=== PATIENT | male | born 1950 | race Caucasian/White ===

== ENCOUNTER 2020-08-21 19:46 | Inpatient (IN) | payer OTHER ==
[2020-08-21] MEDS ORDERED: MAG HYDROX/AL HYDROX/SIMETH 30 ML UNIT-DOSE CUP PO PRN (21:16)
[2020-08-21] MEDS ORDERED: ONDANSETRON *ODT* 4 MG TABLET SL PRN (21:16)
[2020-08-21] MEDS ORDERED: ACETAMINOPHEN 325 MG TABLET (FP) PO PRN ×2 (21:16)
[2020-08-21] MEDS ORDERED: P-EPHED 60MG/TRIPROLIDI 2.5MG TABLET PO PRN (21:16)
[2020-08-21] MEDS ORDERED: MENTHOL/PHENOL 1 EACH UD MM PRN (21:16)
[2020-08-21] MEDS ORDERED: NALOXONE (NARCAN) HCL 4 MG/0.1 ML SPRAY NS PRN (21:16)
[2020-08-21] MEDS ORDERED: guaiFENesin 200 MG/10 ML 10 ML UNIT-DOSE CUPS PO PRN (21:16)
[2020-08-21] MEDS ORDERED: MAGNESIUM CITRATE 300 ML BOTTLE PO PRN (21:16)
[2020-08-21] MEDS ORDERED: NALOXONE HCL 0.4 MG/ML VIAL IM PRN (21:16)
[2020-08-21] MEDS ORDERED: MAGNESIUM HYDROX 2400MG/30ML ORAL SUSPENSION 30 ML CUP PO PRN (21:16)
[2020-08-21] MEDS ORDERED: DICYCLOMINE HCL 10 MG CAPSULE PO PRN (21:16)
[2020-08-21 21:32] VITALS: BMI 21.4
[2020-08-22] MEDS: THIAMINE HCL 100 MG TABLET (FP) PO SCH ×2 (00:13→22:11)
[2020-08-22] MEDS: MELATONIN 5 MG TABLETS PO SCH ×2 (00:13→22:11)
[2020-08-22] MEDS: METHOCARBAMOL 500 MG TABLET PO PRN (07:19)
[2020-08-22] MEDS ORDERED: METHADONE HCL 10 MG TABLET (FOR DETOX USE ONLY) PO ONE (09:52)
[2020-08-22 10:14] LABS: CALCIUM 9.6 mg/dL (8.5-10.1)
[2020-08-22 10:15] LABS: ALBUMIN 3.9 g/dl (3.4-5.0); BLOOD UREA NITROGEN 30.8 mg/dL (7-18)
[2020-08-22 10:16] LABS: CREATININE 1.4 mg/dL (0.55-1.3)
[2020-08-22 10:17] LABS: HEMATOCRIT 38.6 % (35.4-49); HEMOGLOBIN 12.8 GM/dL (11.7-16.9); MCH 29.8 pg (25.7-33.7); MCHC 33.3 g/dl (32.0-35.9); MEAN CELL VOLUME 89.7 fl (80-96); MEAN PLT VOLUME 8.2 fl (7.5-11.1); PLATELET COUNT 247 10^3/uL (134-434); RBC 4.31 M/mm3 (4.00-5.60); RDW 14.1 % (11.9-15.9); WHITE BLOOD COUNT 7.9 K/mm3 (4.0-10.0)
[2020-08-22 10:18] LABS: BILIRUBIN,TOTAL 0.5 mg/dL (0.2-1); TOT PROT 7.2 g/dl (6.4-8.2)
[2020-08-22] MEDS: PRENATAL VITAMINS W/ FOLIC ACID TABLET (FP) PO SCH (10:18)
[2020-08-22] MEDS: cloNIDine HCL 0.1 MG TABLET PO PRN (10:18)
[2020-08-22] MEDS: BISMUTH SUBSALICYLATE 524 MG/30 ML PO PRN ×2 (17:21→19:14)
[2020-08-23] MEDS ORDERED: METHADONE HCL 10 MG TABLET (FOR DETOX USE ONLY) ONE (09:15)
[2020-08-23] MEDS ORDERED: METHADONE HCL 5 MG TABLET (FOR DETOX USE ONLY) ONE (09:15)
[2020-08-23] MEDS ORDERED: METHADONE (DETOX) 20 MG, METHADONE (DETOX) 5 MG PO ONE (10:00)
[2020-08-23] MEDS: PRENATAL VITAMINS W/ FOLIC ACID TABLET (FP) PO SCH (10:20)
[2020-08-23 11:01] LABS: ALBUMIN 3.4 g/dl (3.4-5.0); BLOOD UREA NITROGEN 31.4 mg/dL (7-18); CALCIUM 9.5 mg/dL (8.5-10.1)
[2020-08-23 11:05] LABS: CREATININE 1.2 mg/dL (0.55-1.3)
[2020-08-23 11:06] LABS: BILIRUBIN,TOTAL 0.4 mg/dL (0.2-1); TOT PROT 6.6 g/dl (6.4-8.2)
[2020-08-23] MEDS: METHOCARBAMOL 500 MG TABLET PO PRN (14:10)
[2020-08-23] MEDS: IBUPROFEN 400 MG TABLET (FP) PO PRN (14:10)
[2020-08-23] MEDS: THIAMINE HCL 100 MG TABLET (FP) PO SCH (22:22)
[2020-08-23] MEDS: MELATONIN 5 MG TABLETS PO SCH (22:22)
[2020-08-23] MEDS: cloNIDine HCL 0.1 MG TABLET PO PRN (22:23)
[2020-08-24] MEDS ORDERED: METHADONE HCL 10 MG TABLET (FOR DETOX USE ONLY) PO ONE (10:00)
[2020-08-24] MEDS: PRENATAL VITAMINS W/ FOLIC ACID TABLET (FP) PO SCH (10:23)
[2020-08-24] MEDS: IBUPROFEN 400 MG TABLET (FP) PO PRN (10:29)
[2020-08-24] MEDS: cloNIDine HCL 0.1 MG TABLET PO PRN ×2 (10:29→22:18)
[2020-08-24] MEDS: METHOCARBAMOL 500 MG TABLET PO PRN (22:18)
[2020-08-24] MEDS: THIAMINE HCL 100 MG TABLET (FP) PO SCH (22:18)
[2020-08-24] MEDS: MELATONIN 5 MG TABLETS PO SCH (22:18)
[2020-08-25] MEDS ORDERED: METHADONE HCL 10 MG TABLET (FOR DETOX USE ONLY) ONE (09:32)
[2020-08-25] MEDS ORDERED: METHADONE HCL 5 MG TABLET (FOR DETOX USE ONLY) ONE (09:33)
[2020-08-25] MEDS: METHOCARBAMOL 500 MG TABLET PO PRN ×2 (09:48→21:57)
[2020-08-25] MEDS: hydrOXYzine PAMOATE 25 MG CAPSULE (FP) PO PRN (09:48)
[2020-08-25] MEDS: PRENATAL VITAMINS W/ FOLIC ACID TABLET (FP) PO SCH (09:48)
[2020-08-25] MEDS ORDERED: METHADONE (DETOX) 10 MG, METHADONE (DETOX) 5 MG PO ONE (10:00)
[2020-08-25] MEDS: THIAMINE HCL 100 MG TABLET (FP) PO SCH (21:57)
[2020-08-25] MEDS: MELATONIN 5 MG TABLETS PO SCH (21:57)
[2020-08-25] MEDS: IBUPROFEN 400 MG TABLET (FP) PO PRN (22:10)
[2020-08-26] MEDS ORDERED: METHADONE HCL 10 MG TABLET (FOR DETOX USE ONLY) PO ONE (10:00)
[2020-08-26 10:07] LABS: SARS-CoV-2 NAA Not Detected (Not Detected)
[2020-08-26] MEDS: PRENATAL VITAMINS W/ FOLIC ACID TABLET (FP) PO SCH (10:20)
[2020-08-26] MEDS: IBUPROFEN 400 MG TABLET (FP) PO PRN (10:23)
[2020-08-26] MEDS: LIDOCAINE 5% TOPICAL PATCH TP SCH (11:00)
[2020-08-26] MEDS ORDERED: LIDOCAINE PATCH REMOVAL MC SCH (22:00)
[2020-08-26] MEDS: MELATONIN 5 MG TABLETS PO SCH (22:10)
[2020-08-26] MEDS: hydrOXYzine PAMOATE 25 MG CAPSULE (FP) PO PRN (22:10)
[2020-08-26] MEDS: THIAMINE HCL 100 MG TABLET (FP) PO SCH (22:10)
[2020-08-26] MEDS: METHOCARBAMOL 500 MG TABLET PO PRN (22:11)
[2020-08-27] MEDS ORDERED: METHADONE HCL 5 MG TABLET (FOR DETOX USE ONLY) PO ONE (06:00)
[2020-08-27 09:02] VITALS: BP 128/84; PULSE 100; TEMP 97.3
[2020-08-27] MEDS: PRENATAL VITAMINS W/ FOLIC ACID TABLET (FP) PO SCH (10:23)
[2020-08-27] MEDS: hydrOXYzine PAMOATE 25 MG CAPSULE (FP) PO PRN (10:24)
[2020-08-27] MEDS: METHOCARBAMOL 500 MG TABLET PO PRN (10:24)
[2020-08-27] MEDS: LIDOCAINE 5% TOPICAL PATCH TP SCH (10:26)
== END 2020-08-27 12:35 | disposition other institution (70) | DRG 897 ==
LOC: YASAS 19:46 → Y3N 21:57 → UNDOADMIN 21:57
PROVIDERS: ADMIT Allergy & Immunology; ATTEND Allergy & Immunology
PROC: HZ2ZZZZ Detoxification Services for Substance Abuse Treatment (ICD-10-PCS; principal; 2020-08-21)
DX: F11.23 Opioid dependence with withdrawal (principal); F19.282 Other psychoactive substance dependence with psychoactive substance-induced sleep disorder; F19.24 Other psychoactive substance dependence with psychoactive substance-induced mood disorder; I10 Essential (primary) hypertension; E11.9 Type 2 diabetes mellitus without complications; Z79.84 Long term (current) use of oral hypoglycemic drugs; K21.9 Gastro-esophageal reflux disease without esophagitis
CPT/HCPCS: 36415; 80053; 82962; 85027; 86780; 93005; 93010; C9803; J0735; U0003; U0005

== ENCOUNTER 2020-08-27 12:40 | Inpatient (IN) | payer OTHER ==
[2020-08-27] MEDS ORDERED: MENTHOL/PHENOL 1 EACH UD MM PRN (13:25)
[2020-08-27] MEDS ORDERED: IBUPROFEN 400 MG TABLET (FP) PO PRN (13:25)
[2020-08-27] MEDS ORDERED: MAG HYDROX/AL HYDROX/SIMETH 30 ML UNIT-DOSE CUP PO PRN (13:25)
[2020-08-27] MEDS ORDERED: MAGNESIUM HYDROX 2400MG/30ML ORAL SUSPENSION 30 ML CUP PO PRN (13:25)
[2020-08-27] MEDS ORDERED: NICOTINE POLACRILEX 2 MG GUM BUC PRN (13:25)
[2020-08-27] MEDS ORDERED: LOPERAMIDE HCL 2 MG CAPSULE PO PRN (13:25)
[2020-08-27] MEDS ORDERED: MAGNESIUM CITRATE 300 ML BOTTLE PO PRN (13:25)
[2020-08-27] MEDS ORDERED: P-EPHED 60MG/TRIPROLIDI 2.5MG TABLET PO PRN (13:25)
[2020-08-27] MEDS: glipiZIDE 5 MG TABLET (FP) PO SCH (16:29)
[2020-08-27] MEDS: INSULIN SLIDING SCALE (NOVOLOG) 1 VIAL SQ SCH ×2 (16:30→21:15)
[2020-08-27] MEDS: CARVEDILOL 3.125 MG TABLET (FP) PO SCH (21:14)
[2020-08-27] MEDS: THIAMINE HCL 100 MG TABLET (FP) PO SCH (21:14)
[2020-08-27] MEDS: MELATONIN 5 MG TABLETS PO SCH (21:14)
[2020-08-27] MEDS: ATORVASTATIN CA 20 MG TABLET (FP) PO SCH (21:14)
[2020-08-28] MEDS: INSULIN SLIDING SCALE (NOVOLOG) 1 VIAL SQ SCH ×4 (06:08→21:50)
[2020-08-28] MEDS: glipiZIDE 5 MG TABLET (FP) PO SCH ×2 (06:08→16:56)
[2020-08-28] MEDS: NICOTINE 7 MG/24 HOURS TOPICAL PATCH TD SCH (09:46)
[2020-08-28] MEDS: amLODIPine BESYLATE 10 MG TABLET (FP) PO SCH (09:46)
[2020-08-28] MEDS: CARVEDILOL 3.125 MG TABLET (FP) PO SCH ×2 (09:46→21:49)
[2020-08-28] MEDS: PRENATAL VITAMINS W/ FOLIC ACID TABLET (FP) PO SCH (09:46)
[2020-08-28 14:07] LABS: HIV INTERPRETATION NEGATIVE (NEGATIVE)
[2020-08-28] MEDS ORDERED: INSULIN (NOVOLOG) ASPART 100 UNITS/ML 10ML VIAL ONE ×2 (16:56→21:48)
[2020-08-28] MEDS: THIAMINE HCL 100 MG TABLET (FP) PO SCH (21:49)
[2020-08-28] MEDS: ATORVASTATIN CA 20 MG TABLET (FP) PO SCH (21:49)
[2020-08-28] MEDS: MELATONIN 5 MG TABLETS PO SCH (21:49)
[2020-08-29] MEDS: glipiZIDE 5 MG TABLET (FP) PO SCH ×2 (06:43→16:32)
[2020-08-29] MEDS: INSULIN SLIDING SCALE (NOVOLOG) 1 VIAL SQ SCH ×4 (06:46→21:09)
[2020-08-29] MEDS: amLODIPine BESYLATE 10 MG TABLET (FP) PO SCH (10:16)
[2020-08-29] MEDS: CARVEDILOL 3.125 MG TABLET (FP) PO SCH ×2 (10:16→21:08)
[2020-08-29] MEDS: PRENATAL VITAMINS W/ FOLIC ACID TABLET (FP) PO SCH (10:16)
[2020-08-29] MEDS: guaiFENesin 200 MG/10 ML 10 ML UNIT-DOSE CUPS PO PRN (10:17)
[2020-08-29] MEDS: NICOTINE 7 MG/24 HOURS TOPICAL PATCH TD SCH (10:17)
[2020-08-29] MEDS ORDERED: INSULIN (NOVOLOG) ASPART 100 UNITS/ML 10ML VIAL ONE ×3 (11:42→21:08)
[2020-08-29] MEDS: THIAMINE HCL 100 MG TABLET (FP) PO SCH (21:09)
[2020-08-29] MEDS: MELATONIN 5 MG TABLETS PO SCH (21:09)
[2020-08-29] MEDS: ATORVASTATIN CA 20 MG TABLET (FP) PO SCH (21:09)
[2020-08-30] MEDS: glipiZIDE 5 MG TABLET (FP) PO SCH ×2 (06:03→17:14)
[2020-08-30] MEDS: INSULIN SLIDING SCALE (NOVOLOG) 1 VIAL SQ SCH ×4 (06:03→21:52)
[2020-08-30] MEDS: NICOTINE 7 MG/24 HOURS TOPICAL PATCH TD SCH (09:32)
[2020-08-30] MEDS: PRENATAL VITAMINS W/ FOLIC ACID TABLET (FP) PO SCH (09:32)
[2020-08-30] MEDS: CARVEDILOL 3.125 MG TABLET (FP) PO SCH ×2 (09:33→21:52)
[2020-08-30] MEDS: amLODIPine BESYLATE 10 MG TABLET (FP) PO SCH (09:33)
[2020-08-30] MEDS ORDERED: INSULIN (NOVOLOG) ASPART 100 UNITS/ML 10ML VIAL ONE ×2 (11:21→16:55)
[2020-08-30] MEDS: MELATONIN 5 MG TABLETS PO SCH (21:52)
[2020-08-30] MEDS: THIAMINE HCL 100 MG TABLET (FP) PO SCH (21:52)
[2020-08-30] MEDS: ATORVASTATIN CA 20 MG TABLET (FP) PO SCH (21:52)
[2020-08-30] MEDS: guaiFENesin 200 MG/10 ML 10 ML UNIT-DOSE CUPS PO PRN (21:53)
[2020-08-31] MEDS: glipiZIDE 5 MG TABLET (FP) PO SCH ×2 (06:15→17:04)
[2020-08-31] MEDS: INSULIN SLIDING SCALE (NOVOLOG) 1 VIAL SQ SCH ×4 (06:16→22:04)
[2020-08-31] MEDS: amLODIPine BESYLATE 10 MG TABLET (FP) PO SCH (09:54)
[2020-08-31] MEDS: NICOTINE 7 MG/24 HOURS TOPICAL PATCH TD SCH (09:54)
[2020-08-31] MEDS: PRENATAL VITAMINS W/ FOLIC ACID TABLET (FP) PO SCH (09:54)
[2020-08-31] MEDS: CARVEDILOL 3.125 MG TABLET (FP) PO SCH ×2 (09:54→22:03)
[2020-08-31] MEDS ORDERED: INSULIN (NOVOLOG) ASPART 100 UNITS/ML 10ML VIAL ONE (17:08)
[2020-08-31] MEDS: hydrOXYzine PAMOATE 25 MG CAPSULE (FP) PO PRN (22:02)
[2020-08-31] MEDS: THIAMINE HCL 100 MG TABLET (FP) PO SCH (22:02)
[2020-08-31] MEDS: MELATONIN 5 MG TABLETS PO SCH (22:02)
[2020-08-31] MEDS: ATORVASTATIN CA 20 MG TABLET (FP) PO SCH (22:03)
[2020-08-31] MEDS: ACETAMINOPHEN 325 MG TABLET (FP) PO PRN (22:04)
[2020-08-31] MEDS: guaiFENesin 200 MG/10 ML 10 ML UNIT-DOSE CUPS PO PRN (22:04)
[2020-09-01] MEDS: INSULIN SLIDING SCALE (NOVOLOG) 1 VIAL SQ SCH ×4 (06:08→21:57)
[2020-09-01] MEDS: glipiZIDE 5 MG TABLET (FP) PO SCH ×2 (06:08→16:52)
[2020-09-01] MEDS: CARVEDILOL 3.125 MG TABLET (FP) PO SCH ×2 (09:37→21:10)
[2020-09-01] MEDS: amLODIPine BESYLATE 10 MG TABLET (FP) PO SCH (09:38)
[2020-09-01] MEDS: NICOTINE 7 MG/24 HOURS TOPICAL PATCH TD SCH (09:38)
[2020-09-01] MEDS: PRENATAL VITAMINS W/ FOLIC ACID TABLET (FP) PO SCH (09:38)
[2020-09-01] MEDS: THIAMINE HCL 100 MG TABLET (FP) PO SCH (21:09)
[2020-09-01] MEDS: MELATONIN 5 MG TABLETS PO SCH (21:09)
[2020-09-01] MEDS: ACETAMINOPHEN 325 MG TABLET (FP) PO PRN (21:10)
[2020-09-01] MEDS: ATORVASTATIN CA 20 MG TABLET (FP) PO SCH (21:10)
[2020-09-02] MEDS: glipiZIDE 5 MG TABLET (FP) PO SCH ×2 (06:11→16:47)
[2020-09-02] MEDS: INSULIN SLIDING SCALE (NOVOLOG) 1 VIAL SQ SCH ×4 (06:11→21:08)
[2020-09-02] MEDS: amLODIPine BESYLATE 10 MG TABLET (FP) PO SCH (09:45)
[2020-09-02] MEDS: CARVEDILOL 3.125 MG TABLET (FP) PO SCH ×2 (09:45→21:05)
[2020-09-02] MEDS: PRENATAL VITAMINS W/ FOLIC ACID TABLET (FP) PO SCH (09:45)
[2020-09-02] MEDS: NICOTINE 7 MG/24 HOURS TOPICAL PATCH TD SCH (09:46)
[2020-09-02] MEDS ORDERED: INSULIN (NOVOLOG) ASPART 100 UNITS/ML 10ML VIAL ONE (16:47)
[2020-09-02] MEDS: THIAMINE HCL 100 MG TABLET (FP) PO SCH (21:05)
[2020-09-02] MEDS: MELATONIN 5 MG TABLETS PO SCH (21:05)
[2020-09-02] MEDS: ATORVASTATIN CA 20 MG TABLET (FP) PO SCH (21:05)
[2020-09-03] MEDS: INSULIN SLIDING SCALE (NOVOLOG) 1 VIAL SQ SCH ×4 (06:02→21:56)
[2020-09-03] MEDS: glipiZIDE 5 MG TABLET (FP) PO SCH ×2 (06:02→17:04)
[2020-09-03] MEDS: CARVEDILOL 3.125 MG TABLET (FP) PO SCH ×2 (09:36→21:53)
[2020-09-03] MEDS: PRENATAL VITAMINS W/ FOLIC ACID TABLET (FP) PO SCH (09:36)
[2020-09-03] MEDS: NICOTINE 7 MG/24 HOURS TOPICAL PATCH TD SCH (09:37)
[2020-09-03] MEDS: amLODIPine BESYLATE 10 MG TABLET (FP) PO SCH (09:37)
[2020-09-03] MEDS: ATORVASTATIN CA 20 MG TABLET (FP) PO SCH (21:53)
[2020-09-03] MEDS: MELATONIN 5 MG TABLETS PO SCH (21:53)
[2020-09-03] MEDS: DOCUSATE SODIUM 100 MG CAPSULE (FP) PO SCH (21:55)
[2020-09-03] MEDS: THIAMINE HCL 100 MG TABLET (FP) PO SCH (21:58)
[2020-09-03] MEDS ORDERED: SUVOREXANT 10 MG TABLET PO PRN (22:00)
[2020-09-04] MEDS: glipiZIDE 5 MG TABLET (FP) PO SCH ×2 (07:09→16:31)
[2020-09-04] MEDS: INSULIN SLIDING SCALE (NOVOLOG) 1 VIAL SQ SCH ×4 (07:11→21:02)
[2020-09-04] MEDS: amLODIPine BESYLATE 10 MG TABLET (FP) PO SCH (09:34)
[2020-09-04] MEDS: CARVEDILOL 3.125 MG TABLET (FP) PO SCH ×2 (09:34→21:01)
[2020-09-04] MEDS: NICOTINE 7 MG/24 HOURS TOPICAL PATCH TD SCH (09:34)
[2020-09-04] MEDS: PRENATAL VITAMINS W/ FOLIC ACID TABLET (FP) PO SCH (09:34)
[2020-09-04] MEDS ORDERED: INSULIN (NOVOLOG) ASPART 100 UNITS/ML 10ML VIAL ONE ×2 (16:31→21:01)
[2020-09-04] MEDS: DOCUSATE SODIUM 100 MG CAPSULE (FP) PO SCH (21:01)
[2020-09-04] MEDS: THIAMINE HCL 100 MG TABLET (FP) PO SCH (21:01)
[2020-09-04] MEDS: ATORVASTATIN CA 20 MG TABLET (FP) PO SCH (21:01)
[2020-09-04] MEDS: MELATONIN 5 MG TABLETS PO SCH (21:01)
[2020-09-04] MEDS: hydrOXYzine PAMOATE 25 MG CAPSULE (FP) PO PRN (21:03)
[2020-09-05] MEDS: INSULIN SLIDING SCALE (NOVOLOG) 1 VIAL SQ SCH ×4 (06:15→21:50)
[2020-09-05] MEDS: glipiZIDE 5 MG TABLET (FP) PO SCH ×2 (06:15→16:30)
[2020-09-05] MEDS: NICOTINE 7 MG/24 HOURS TOPICAL PATCH TD SCH (09:36)
[2020-09-05] MEDS: CARVEDILOL 3.125 MG TABLET (FP) PO SCH ×2 (09:36→21:44)
[2020-09-05] MEDS: amLODIPine BESYLATE 10 MG TABLET (FP) PO SCH (09:36)
[2020-09-05] MEDS: PRENATAL VITAMINS W/ FOLIC ACID TABLET (FP) PO SCH (09:36)
[2020-09-05] MEDS: MELATONIN 5 MG TABLETS PO SCH (21:44)
[2020-09-05] MEDS: ATORVASTATIN CA 20 MG TABLET (FP) PO SCH (21:44)
[2020-09-05] MEDS: DOCUSATE SODIUM 100 MG CAPSULE (FP) PO SCH (21:44)
[2020-09-05] MEDS: THIAMINE HCL 100 MG TABLET (FP) PO SCH (21:45)
[2020-09-05] MEDS: MIRTAZAPINE 15 MG TABLET (FP) PO SCH (21:46)
[2020-09-05] MEDS: hydrOXYzine PAMOATE 25 MG CAPSULE (FP) PO PRN (21:46)
[2020-09-05] MEDS ORDERED: INSULIN (NOVOLOG) ASPART 100 UNITS/ML 10ML VIAL ONE (21:49)
[2020-09-06] MEDS: glipiZIDE 5 MG TABLET (FP) PO SCH ×2 (06:25→17:01)
[2020-09-06] MEDS: INSULIN SLIDING SCALE (NOVOLOG) 1 VIAL SQ SCH ×4 (06:27→21:07)
[2020-09-06] MEDS: PRENATAL VITAMINS W/ FOLIC ACID TABLET (FP) PO SCH (09:37)
[2020-09-06] MEDS: amLODIPine BESYLATE 10 MG TABLET (FP) PO SCH (09:37)
[2020-09-06] MEDS: CARVEDILOL 3.125 MG TABLET (FP) PO SCH ×2 (09:37→21:04)
[2020-09-06] MEDS: NICOTINE 7 MG/24 HOURS TOPICAL PATCH TD SCH (09:37)
[2020-09-06] MEDS: guaiFENesin 200 MG/10 ML 10 ML UNIT-DOSE CUPS PO PRN (17:02)
[2020-09-06] MEDS: MIRTAZAPINE 15 MG TABLET (FP) PO SCH (21:04)
[2020-09-06] MEDS: ATORVASTATIN CA 20 MG TABLET (FP) PO SCH (21:05)
[2020-09-06] MEDS: DOCUSATE SODIUM 100 MG CAPSULE (FP) PO SCH (21:05)
[2020-09-06] MEDS ORDERED: INSULIN (NOVOLOG) ASPART 100 UNITS/ML 10ML VIAL ONE (21:06)
[2020-09-06] MEDS ORDERED: SUVOREXANT 10 MG TABLET PO PRN (22:00)
[2020-09-06] MEDS: SUVOREXANT 15 MG TABLET PO PRN (23:02)
[2020-09-06] MEDS: THIAMINE HCL 100 MG TABLET (FP) PO SCH (23:03)
[2020-09-07] MEDS: glipiZIDE 5 MG TABLET (FP) PO SCH ×2 (06:09→16:35)
[2020-09-07] MEDS: INSULIN SLIDING SCALE (NOVOLOG) 1 VIAL SQ SCH ×4 (06:11→21:47)
[2020-09-07] MEDS: CARVEDILOL 3.125 MG TABLET (FP) PO SCH ×2 (09:33→21:46)
[2020-09-07] MEDS: PRENATAL VITAMINS W/ FOLIC ACID TABLET (FP) PO SCH (09:33)
[2020-09-07] MEDS: amLODIPine BESYLATE 10 MG TABLET (FP) PO SCH (09:33)
[2020-09-07] MEDS: NICOTINE 7 MG/24 HOURS TOPICAL PATCH TD SCH (09:34)
[2020-09-07] MEDS: SUVOREXANT 15 MG TABLET PO PRN (21:45)
[2020-09-07] MEDS: ATORVASTATIN CA 20 MG TABLET (FP) PO SCH (21:46)
[2020-09-07] MEDS: DOCUSATE SODIUM 100 MG CAPSULE (FP) PO SCH (21:46)
[2020-09-07] MEDS: THIAMINE HCL 100 MG TABLET (FP) PO SCH (21:46)
[2020-09-07] MEDS: MIRTAZAPINE 15 MG TABLET (FP) PO SCH (21:47)
[2020-09-08] MEDS: glipiZIDE 5 MG TABLET (FP) PO SCH ×2 (06:10→16:32)
[2020-09-08] MEDS: INSULIN SLIDING SCALE (NOVOLOG) 1 VIAL SQ SCH ×4 (06:12→21:03)
[2020-09-08] MEDS: amLODIPine BESYLATE 10 MG TABLET (FP) PO SCH (09:50)
[2020-09-08] MEDS: PRENATAL VITAMINS W/ FOLIC ACID TABLET (FP) PO SCH (09:50)
[2020-09-08] MEDS: NICOTINE 7 MG/24 HOURS TOPICAL PATCH TD SCH (09:50)
[2020-09-08] MEDS: CARVEDILOL 3.125 MG TABLET (FP) PO SCH ×2 (09:50→21:02)
[2020-09-08] MEDS: hydrOXYzine PAMOATE 25 MG CAPSULE (FP) PO PRN (09:50)
[2020-09-08] MEDS ORDERED: INSULIN (NOVOLOG) ASPART 100 UNITS/ML 10ML VIAL ONE ×2 (12:11→20:57)
[2020-09-08] MEDS: ATORVASTATIN CA 20 MG TABLET (FP) PO SCH (21:02)
[2020-09-08] MEDS: THIAMINE HCL 100 MG TABLET (FP) PO SCH (21:02)
[2020-09-08] MEDS: DOCUSATE SODIUM 100 MG CAPSULE (FP) PO SCH (21:02)
[2020-09-08] MEDS: MIRTAZAPINE 15 MG TABLET (FP) PO SCH (21:02)
[2020-09-08] MEDS: SUVOREXANT 15 MG TABLET PO PRN (21:03)
[2020-09-09] MEDS: hydrOXYzine PAMOATE 25 MG CAPSULE (FP) PO PRN (01:07)
[2020-09-09] MEDS: glipiZIDE 5 MG TABLET (FP) PO SCH (06:23)
[2020-09-09] MEDS: INSULIN SLIDING SCALE (NOVOLOG) 1 VIAL SQ SCH (06:23)
[2020-09-09 06:53] VITALS: TEMP 97.7
[2020-09-09] MEDS: CARVEDILOL 3.125 MG TABLET (FP) PO SCH (09:34)
[2020-09-09] MEDS: PRENATAL VITAMINS W/ FOLIC ACID TABLET (FP) PO SCH (09:34)
[2020-09-09] MEDS: amLODIPine BESYLATE 10 MG TABLET (FP) PO SCH (09:34)
[2020-09-09] MEDS: NICOTINE 7 MG/24 HOURS TOPICAL PATCH TD SCH (09:35)
[2020-09-09 10:10] VITALS: BP 130/88; PULSE 101
== END 2020-09-09 10:45 | disposition home or self-care (01) | DRG 895 ==
LOC: YASAS 12:40 → Y3W 12:41
PROVIDERS: ADMIT Allergy & Immunology; ATTEND Allergy & Immunology
PROC: HZ42ZZZ Group Counseling for Substance Abuse Treatment, Cognitive-Behavioral (ICD-10-PCS; principal; 2020-08-27)
DX: F11.20 Opioid dependence, uncomplicated (principal); F19.282 Other psychoactive substance dependence with psychoactive substance-induced sleep disorder; F19.24 Other psychoactive substance dependence with psychoactive substance-induced mood disorder; I10 Essential (primary) hypertension; E11.9 Type 2 diabetes mellitus without complications; E78.5 Hyperlipidemia, unspecified; B18.2 Chronic viral hepatitis C; K21.9 Gastro-esophageal reflux disease without esophagitis; Z62.810 Personal history of physical and sexual abuse in childhood; Z79.84 Long term (current) use of oral hypoglycemic drugs; Z79.4 Long term (current) use of insulin
CPT/HCPCS: 36415; 71046-TC-FY; 82962; 87389

== ENCOUNTER 2020-12-04 13:41 | Inpatient (IN) | payer OTHER ==
[2020-12-04 15:26] VITALS: BMI 23.8
[2020-12-04] MEDS ORDERED: ACETAMINOPHEN 325 MG TABLET (FP) PO PRN ×2 (15:47)
[2020-12-04] MEDS ORDERED: ONDANSETRON *ODT* 4 MG TABLET SL PRN (15:47)
[2020-12-04] MEDS ORDERED: MENTHOL/PHENOL 1 EACH UD MM PRN (15:47)
[2020-12-04] MEDS ORDERED: MAG HYDROX/AL HYDROX/SIMETH 30 ML UNIT-DOSE CUP PO PRN (15:47)
[2020-12-04] MEDS ORDERED: MAGNESIUM CITRATE 300 ML BOTTLE PO PRN (15:47)
[2020-12-04] MEDS ORDERED: METHOCARBAMOL 500 MG TABLET PO PRN (15:47)
[2020-12-04] MEDS ORDERED: MAGNESIUM HYDROX 2400MG/30ML ORAL SUSPENSION 30 ML CUP PO PRN (15:47)
[2020-12-04] MEDS ORDERED: methaDONE HCL 10 MG TABLET (FOR DETOX USE ONLY) PO ONE (15:47)
[2020-12-04] MEDS ORDERED: BISMUTH SUBSALICYLATE 524 MG/30 ML PO PRN (15:47)
[2020-12-04] MEDS ORDERED: cloNIDine HCL 0.1 MG TABLET PO PRN (15:47)
[2020-12-04] MEDS ORDERED: IBUPROFEN 400 MG TABLET (FP) PO PRN (15:47)
[2020-12-04] MEDS ORDERED: clonazePAM 0.5 MG ODT TABLETS SL PRN (15:47)
[2020-12-04] MEDS: hydrOXYzine PAMOATE 25 MG CAPSULE (FP) PO SCH ×2 (19:20→22:41)
[2020-12-04] MEDS: THIAMINE HCL 100 MG TABLET (FP) PO SCH (22:41)
[2020-12-04] MEDS: MELATONIN 5 MG TABLETS PO SCH (22:41)
[2020-12-05] MEDS: hydrOXYzine PAMOATE 25 MG CAPSULE (FP) PO SCH ×2 (05:37→10:17)
[2020-12-05] MEDS ORDERED: methaDONE HCL 10 MG TABLET (FOR DETOX USE ONLY) ONE (09:31)
[2020-12-05 09:58] LABS: HEMATOCRIT 36.7 % (35.4-49); HEMOGLOBIN 12.5 GM/dL (11.7-16.9); MCH 29.5 pg (25.7-33.7); MCHC 33.9 g/dl (32.0-35.9); MEAN CELL VOLUME 87.1 fl (80-96); MEAN PLT VOLUME 8.1 fl (7.5-11.1); PLATELET COUNT 140 10^3/uL (134-434); RBC 4.22 M/mm3 (4.00-5.60); RDW 14.3 % (11.9-15.9); WHITE BLOOD COUNT 4.8 K/mm3 (4.0-10.0)
[2020-12-05 10:13] LABS: ALBUMIN 3.6 g/dl (3.4-5.0); BLOOD UREA NITROGEN 21.3 mg/dL (7-18); CALCIUM 9.3 mg/dL (8.5-10.1)
[2020-12-05 10:16] LABS: CREATININE 1.1 mg/dL (0.55-1.3)
[2020-12-05 10:17] LABS: BILIRUBIN,TOTAL 0.8 mg/dL (0.2-1); TOT PROT 6.8 g/dl (6.4-8.2)
[2020-12-05] MEDS: PRENATAL VITAMINS W/ FOLIC ACID TABLET (FP) PO SCH (10:17)
[2020-12-05] MEDS ORDERED: hydrOXYzine PAMOATE 25 MG CAPSULE (FP) PO PRN (11:26)
[2020-12-05] MEDS: glipiZIDE 5 MG TABLET (FP) PO SCH ×2 (12:59→17:55)
[2020-12-05] MEDS: CARVEDILOL 3.125 MG TABLET (FP) PO SCH ×2 (12:59→22:33)
[2020-12-05] MEDS: ATORVASTATIN CA 20 MG TABLET (FP) PO SCH (22:33)
[2020-12-05] MEDS: THIAMINE HCL 100 MG TABLET (FP) PO SCH (22:33)
[2020-12-05] MEDS: MELATONIN 5 MG TABLETS PO SCH (22:35)
[2020-12-06] MEDS: glipiZIDE 5 MG TABLET (FP) PO SCH ×2 (07:08→18:22)
[2020-12-06] MEDS ORDERED: methaDONE HCL 10 MG TABLET (FOR DETOX USE ONLY) PO ONE (10:00)
[2020-12-06] MEDS: CARVEDILOL 3.125 MG TABLET (FP) PO SCH ×2 (10:22→23:00)
[2020-12-06] MEDS: PRENATAL VITAMINS W/ FOLIC ACID TABLET (FP) PO SCH (10:22)
[2020-12-06] MEDS: MELATONIN 5 MG TABLETS PO SCH (22:49)
[2020-12-06] MEDS: THIAMINE HCL 100 MG TABLET (FP) PO SCH (22:50)
[2020-12-06] MEDS: ATORVASTATIN CA 20 MG TABLET (FP) PO SCH (22:52)
[2020-12-07] MEDS: glipiZIDE 5 MG TABLET (FP) PO SCH ×2 (06:57→17:32)
[2020-12-07] MEDS ORDERED: methaDONE HCL 10 MG TABLET (FOR DETOX USE ONLY) ONE (09:20)
[2020-12-07] MEDS: PRENATAL VITAMINS W/ FOLIC ACID TABLET (FP) PO SCH (11:11)
[2020-12-07] MEDS: CARVEDILOL 3.125 MG TABLET (FP) PO SCH ×2 (13:45→22:17)
[2020-12-07] MEDS: ATORVASTATIN CA 20 MG TABLET (FP) PO SCH (22:17)
[2020-12-07] MEDS: THIAMINE HCL 100 MG TABLET (FP) PO SCH (22:17)
[2020-12-07] MEDS: MELATONIN 5 MG TABLETS PO SCH (22:17)
[2020-12-08] MEDS: glipiZIDE 5 MG TABLET (FP) PO SCH ×2 (06:57→17:38)
[2020-12-08] MEDS ORDERED: methaDONE HCL 10 MG TABLET (FOR DETOX USE ONLY) PO ONE (10:00)
[2020-12-08] MEDS: CARVEDILOL 3.125 MG TABLET (FP) PO SCH ×2 (10:19→22:18)
[2020-12-08] MEDS: PRENATAL VITAMINS W/ FOLIC ACID TABLET (FP) PO SCH (10:19)
[2020-12-08] MEDS: MELATONIN 5 MG TABLETS PO SCH (22:18)
[2020-12-08] MEDS: THIAMINE HCL 100 MG TABLET (FP) PO SCH (22:18)
[2020-12-08] MEDS: ATORVASTATIN CA 20 MG TABLET (FP) PO SCH (22:18)
[2020-12-09] MEDS: glipiZIDE 5 MG TABLET (FP) PO SCH (07:47)
[2020-12-09 09:25] VITALS: BP 148/87; PULSE 65; TEMP 96.9
[2020-12-09] MEDS: PRENATAL VITAMINS W/ FOLIC ACID TABLET (FP) PO SCH (10:10)
[2020-12-09] MEDS: CARVEDILOL 3.125 MG TABLET (FP) PO SCH (10:10)
== END 2020-12-09 11:34 | disposition other institution (70) | DRG 897 ==
LOC: YASAS 13:41 → Y6N 17:30
PROVIDERS: ADMIT Allergy & Immunology; ATTEND Allergy & Immunology
PROC: HZ2ZZZZ Detoxification Services for Substance Abuse Treatment (ICD-10-PCS; principal; 2020-12-04)
DX: F11.23 Opioid dependence with withdrawal (principal); F19.282 Other psychoactive substance dependence with psychoactive substance-induced sleep disorder; F19.280 Other psychoactive substance dependence with psychoactive substance-induced anxiety disorder; E78.5 Hyperlipidemia, unspecified; E11.9 Type 2 diabetes mellitus without complications; Z79.84 Long term (current) use of oral hypoglycemic drugs; I10 Essential (primary) hypertension; R74.01 Elevation of levels of liver transaminase levels; R74.8 Abnormal levels of other serum enzymes; R79.89 Other specified abnormal findings of blood chemistry; Z62.810 Personal history of physical and sexual abuse in childhood; Z86.19 Personal history of other infectious and parasitic diseases
CPT/HCPCS: 36415; 80053; 82962; 85027; 86780; C9803; J0735; U0003; U0005

== ENCOUNTER 2020-12-09 11:41 | Inpatient (IN) | payer OTHER ==
[2020-12-09] MEDS ORDERED: MAGNESIUM CITRATE 300 ML BOTTLE PO PRN (13:12)
[2020-12-09] MEDS ORDERED: MAG HYDROX/AL HYDROX/SIMETH 30 ML UNIT-DOSE CUP PO PRN (13:12)
[2020-12-09] MEDS ORDERED: hydrOXYzine PAMOATE 25 MG CAPSULE (FP) PO PRN (13:12)
[2020-12-09] MEDS ORDERED: guaiFENesin 200 MG/10 ML 10 ML UNIT-DOSE CUPS PO PRN (13:12)
[2020-12-09] MEDS ORDERED: LOPERAMIDE HCL 2 MG CAPSULE PO PRN (13:12)
[2020-12-09] MEDS ORDERED: NICOTINE 10 MG CARTRIDGE (INHALER) IH PRN (13:12)
[2020-12-09] MEDS ORDERED: MAGNESIUM HYDROX 2400MG/30ML ORAL SUSPENSION 30 ML CUP PO PRN (13:12)
[2020-12-09] MEDS ORDERED: IBUPROFEN 400 MG TABLET (FP) PO PRN (13:12)
[2020-12-09] MEDS ORDERED: ACETAMINOPHEN 325 MG TABLET (FP) PO PRN (13:12)
[2020-12-09] MEDS: glipiZIDE 5 MG TABLET (FP) PO SCH (17:09)
[2020-12-09] MEDS: MELATONIN 5 MG TABLETS PO SCH (21:19)
[2020-12-09] MEDS: ATORVASTATIN CA 20 MG TABLET (FP) PO SCH (21:19)
[2020-12-09] MEDS: THIAMINE HCL 100 MG TABLET (FP) PO SCH (21:19)
[2020-12-09] MEDS: CARVEDILOL 3.125 MG TABLET (FP) PO SCH (23:39)
[2020-12-10] MEDS: glipiZIDE 5 MG TABLET (FP) PO SCH ×2 (06:33→16:26)
[2020-12-10] MEDS: PRENATAL VITAMINS W/ FOLIC ACID TABLET (FP) PO SCH (10:22)
[2020-12-10] MEDS: CARVEDILOL 3.125 MG TABLET (FP) PO SCH ×2 (10:22→21:03)
[2020-12-10] MEDS: THIAMINE HCL 100 MG TABLET (FP) PO SCH (21:03)
[2020-12-10] MEDS: MELATONIN 5 MG TABLETS PO SCH (21:03)
[2020-12-10] MEDS: ATORVASTATIN CA 20 MG TABLET (FP) PO SCH (21:03)
[2020-12-11] MEDS: glipiZIDE 5 MG TABLET (FP) PO SCH ×2 (06:08→16:45)
[2020-12-11] MEDS: CARVEDILOL 3.125 MG TABLET (FP) PO SCH ×2 (09:56→21:28)
[2020-12-11] MEDS: PRENATAL VITAMINS W/ FOLIC ACID TABLET (FP) PO SCH (09:56)
[2020-12-11] MEDS: THIAMINE HCL 100 MG TABLET (FP) PO SCH (21:27)
[2020-12-11] MEDS: MELATONIN 5 MG TABLETS PO SCH (21:27)
[2020-12-11] MEDS: ATORVASTATIN CA 20 MG TABLET (FP) PO SCH (21:28)
[2020-12-12] MEDS: glipiZIDE 5 MG TABLET (FP) PO SCH ×2 (05:59→16:27)
[2020-12-12] MEDS: CARVEDILOL 3.125 MG TABLET (FP) PO SCH ×2 (10:48→21:13)
[2020-12-12] MEDS: PRENATAL VITAMINS W/ FOLIC ACID TABLET (FP) PO SCH (10:48)
[2020-12-12] MEDS: THIAMINE HCL 100 MG TABLET (FP) PO SCH (21:07)
[2020-12-12] MEDS: ATORVASTATIN CA 20 MG TABLET (FP) PO SCH (21:07)
[2020-12-12] MEDS: MELATONIN 5 MG TABLETS PO SCH (21:07)
[2020-12-13] MEDS: glipiZIDE 5 MG TABLET (FP) PO SCH ×2 (06:24→17:03)
[2020-12-13] MEDS: CARVEDILOL 3.125 MG TABLET (FP) PO SCH ×2 (09:41→21:44)
[2020-12-13] MEDS: PRENATAL VITAMINS W/ FOLIC ACID TABLET (FP) PO SCH (09:41)
[2020-12-13] MEDS: MELATONIN 5 MG TABLETS PO SCH (21:44)
[2020-12-13] MEDS: ATORVASTATIN CA 20 MG TABLET (FP) PO SCH (21:44)
[2020-12-13] MEDS: THIAMINE HCL 100 MG TABLET (FP) PO SCH (21:45)
[2020-12-14] MEDS: glipiZIDE 5 MG TABLET (FP) PO SCH ×2 (06:42→16:35)
[2020-12-14] MEDS: PRENATAL VITAMINS W/ FOLIC ACID TABLET (FP) PO SCH (10:21)
[2020-12-14] MEDS: CARVEDILOL 3.125 MG TABLET (FP) PO SCH ×2 (10:21→21:10)
[2020-12-14] MEDS: MELATONIN 5 MG TABLETS PO SCH (21:10)
[2020-12-14] MEDS: ATORVASTATIN CA 20 MG TABLET (FP) PO SCH (21:10)
[2020-12-14] MEDS: THIAMINE HCL 100 MG TABLET (FP) PO SCH (21:10)
[2020-12-14] MEDS: hydrOXYzine PAMOATE 25 MG CAPSULE (FP) PO PRN (21:13)
[2020-12-15] MEDS: glipiZIDE 5 MG TABLET (FP) PO SCH ×2 (06:32→16:22)
[2020-12-15] MEDS: hydrOXYzine PAMOATE 25 MG CAPSULE (FP) PO PRN ×3 (06:32→21:38)
[2020-12-15] MEDS: PRENATAL VITAMINS W/ FOLIC ACID TABLET (FP) PO SCH (09:51)
[2020-12-15] MEDS: CARVEDILOL 3.125 MG TABLET (FP) PO SCH ×2 (09:51→21:37)
[2020-12-15] MEDS: THIAMINE HCL 100 MG TABLET (FP) PO SCH (21:37)
[2020-12-15] MEDS: MIRTAZAPINE 15 MG TABLET (FP) PO SCH (21:37)
[2020-12-15] MEDS: MELATONIN 5 MG TABLETS PO SCH (21:37)
[2020-12-15] MEDS: ATORVASTATIN CA 20 MG TABLET (FP) PO SCH (21:37)
[2020-12-16] MEDS: hydrOXYzine PAMOATE 25 MG CAPSULE (FP) PO PRN ×3 (05:55→21:17)
[2020-12-16] MEDS: glipiZIDE 5 MG TABLET (FP) PO SCH ×2 (06:00→16:49)
[2020-12-16] MEDS: PRENATAL VITAMINS W/ FOLIC ACID TABLET (FP) PO SCH (10:06)
[2020-12-16] MEDS: CARVEDILOL 3.125 MG TABLET (FP) PO SCH ×2 (10:06→21:16)
[2020-12-16] MEDS: THIAMINE HCL 100 MG TABLET (FP) PO SCH (21:16)
[2020-12-16] MEDS: MELATONIN 5 MG TABLETS PO SCH (21:16)
[2020-12-16] MEDS: MIRTAZAPINE 15 MG TABLET (FP) PO SCH (21:16)
[2020-12-16] MEDS: ATORVASTATIN CA 20 MG TABLET (FP) PO SCH (21:16)
[2020-12-17] MEDS: glipiZIDE 5 MG TABLET (FP) PO SCH ×2 (06:13→16:22)
[2020-12-17] MEDS: CARVEDILOL 3.125 MG TABLET (FP) PO SCH ×2 (09:54→21:35)
[2020-12-17] MEDS: PRENATAL VITAMINS W/ FOLIC ACID TABLET (FP) PO SCH (09:54)
[2020-12-17] MEDS: MELATONIN 5 MG TABLETS PO SCH (21:34)
[2020-12-17] MEDS: THIAMINE HCL 100 MG TABLET (FP) PO SCH (21:34)
[2020-12-17] MEDS: MIRTAZAPINE 15 MG TABLET (FP) PO SCH (21:35)
[2020-12-17] MEDS: ATORVASTATIN CA 20 MG TABLET (FP) PO SCH (21:35)
[2020-12-18] MEDS: glipiZIDE 5 MG TABLET (FP) PO SCH ×2 (06:09→16:22)
[2020-12-18] MEDS: CARVEDILOL 3.125 MG TABLET (FP) PO SCH ×2 (10:34→21:13)
[2020-12-18] MEDS: PRENATAL VITAMINS W/ FOLIC ACID TABLET (FP) PO SCH (10:34)
[2020-12-18] MEDS: NALTREXONE HCL 50 MG TABLET PO SCH (13:30)
[2020-12-18] MEDS: MELATONIN 5 MG TABLETS PO SCH (21:12)
[2020-12-18] MEDS: THIAMINE HCL 100 MG TABLET (FP) PO SCH (21:12)
[2020-12-18] MEDS: traZODone HCL 50 MG TABLET (FP) PO SCH (21:13)
[2020-12-18] MEDS: ATORVASTATIN CA 20 MG TABLET (FP) PO SCH (21:13)
[2020-12-19] MEDS: glipiZIDE 5 MG TABLET (FP) PO SCH ×2 (06:05→17:11)
[2020-12-19] MEDS: PRENATAL VITAMINS W/ FOLIC ACID TABLET (FP) PO SCH (10:19)
[2020-12-19] MEDS: CARVEDILOL 3.125 MG TABLET (FP) PO SCH ×2 (10:19→21:41)
[2020-12-19] MEDS: NALTREXONE HCL 50 MG TABLET PO SCH (10:20)
[2020-12-19] MEDS: ATORVASTATIN CA 20 MG TABLET (FP) PO SCH (21:40)
[2020-12-19] MEDS: MELATONIN 5 MG TABLETS PO SCH (21:41)
[2020-12-19] MEDS: THIAMINE HCL 100 MG TABLET (FP) PO SCH (21:41)
[2020-12-19] MEDS: traZODone HCL 50 MG TABLET (FP) PO SCH (21:41)
[2020-12-20] MEDS ORDERED: ONDANSETRON *ODT* 4 MG TABLET SL ONE (00:01)
[2020-12-20] MEDS: glipiZIDE 5 MG TABLET (FP) PO SCH ×2 (06:37→16:38)
[2020-12-20] MEDS: CARVEDILOL 3.125 MG TABLET (FP) PO SCH ×2 (09:30→21:02)
[2020-12-20] MEDS: PRENATAL VITAMINS W/ FOLIC ACID TABLET (FP) PO SCH (09:30)
[2020-12-20] MEDS: THIAMINE HCL 100 MG TABLET (FP) PO SCH (21:02)
[2020-12-20] MEDS: traZODone HCL 50 MG TABLET (FP) PO SCH (21:02)
[2020-12-20] MEDS: ATORVASTATIN CA 20 MG TABLET (FP) PO SCH (21:02)
[2020-12-20] MEDS: MELATONIN 5 MG TABLETS PO SCH (21:03)
[2020-12-20] MEDS: hydrOXYzine PAMOATE 25 MG CAPSULE (FP) PO PRN (21:03)
[2020-12-21] MEDS: glipiZIDE 5 MG TABLET (FP) PO SCH ×2 (06:30→16:20)
[2020-12-21] MEDS: PRENATAL VITAMINS W/ FOLIC ACID TABLET (FP) PO SCH (09:15)
[2020-12-21] MEDS: CARVEDILOL 3.125 MG TABLET (FP) PO SCH ×2 (09:15→21:32)
[2020-12-21] MEDS: ATORVASTATIN CA 20 MG TABLET (FP) PO SCH (21:32)
[2020-12-21] MEDS: MELATONIN 5 MG TABLETS PO SCH (21:32)
[2020-12-21] MEDS: THIAMINE HCL 100 MG TABLET (FP) PO SCH (21:32)
[2020-12-21] MEDS: traZODone HCL 50 MG TABLET (FP) PO SCH (21:32)
[2020-12-21] MEDS: hydrOXYzine PAMOATE 25 MG CAPSULE (FP) PO PRN (21:33)
[2020-12-22] MEDS: glipiZIDE 5 MG TABLET (FP) PO SCH ×2 (06:12→17:16)
[2020-12-22 06:46] VITALS: TEMP 98.1
[2020-12-22] MEDS: PRENATAL VITAMINS W/ FOLIC ACID TABLET (FP) PO SCH (10:19)
[2020-12-22] MEDS: CARVEDILOL 3.125 MG TABLET (FP) PO SCH ×2 (10:19→21:17)
[2020-12-22] MEDS ORDERED: FLU VACC QS2021-22(6MOS UP)/PF 60 MCG/0.5 ML SYRINGE IM ONE (12:00)
[2020-12-22] MEDS: traZODone HCL 50 MG TABLET (FP) PO SCH (21:17)
[2020-12-22] MEDS: ATORVASTATIN CA 20 MG TABLET (FP) PO SCH (21:17)
[2020-12-22] MEDS: THIAMINE HCL 100 MG TABLET (FP) PO SCH (21:18)
[2020-12-22] MEDS: MELATONIN 5 MG TABLETS PO SCH (21:18)
[2020-12-23] MEDS: glipiZIDE 5 MG TABLET (FP) PO SCH (06:02)
[2020-12-23 08:02] VITALS: BP 151/99; PULSE 69
[2020-12-23] MEDS: CARVEDILOL 3.125 MG TABLET (FP) PO SCH (09:11)
[2020-12-23] MEDS: PRENATAL VITAMINS W/ FOLIC ACID TABLET (FP) PO SCH (09:11)
== END 2020-12-23 10:35 | disposition home or self-care (01) | DRG 895 ==
LOC: YASAS 11:41 → Y3W 11:43
PROVIDERS: ADMIT Allergy & Immunology; ATTEND Allergy & Immunology
PROC: HZ42ZZZ Group Counseling for Substance Abuse Treatment, Cognitive-Behavioral (ICD-10-PCS; principal; 2020-12-19)
DX: F11.20 Opioid dependence, uncomplicated (principal); F19.282 Other psychoactive substance dependence with psychoactive substance-induced sleep disorder; F19.24 Other psychoactive substance dependence with psychoactive substance-induced mood disorder; I10 Essential (primary) hypertension; E11.9 Type 2 diabetes mellitus without complications; E78.5 Hyperlipidemia, unspecified; Z79.84 Long term (current) use of oral hypoglycemic drugs; Z62.810 Personal history of physical and sexual abuse in childhood; Z56.0 Unemployment, unspecified; Z59.00 Homelessness unspecified
CPT/HCPCS: 82962; 90686; G0008; Q0162